=== PATIENT | female | born 1990 | race Caucasian/White ===

== ENCOUNTER 2018-03-18 18:54 | Emergency (ER) | payer OTHER ==
[2018-03-18 19:58] LABS: BILIRUBIN,URINE NEGATIVE (NEGATIVE); GLUCOSE, URINE (UA) NEGATIVE (NEGATIVE); KETONES,URINE (UA) NEGATIVE (NEGATIVE); LEUKOCYTE ESTERASE, URINE NEGATIVE (NEGATIVE); NITRITE,URINE NEGATIVE (NEGATIVE); OCCULT BLOOD,URINE NEGATIVE (NEGATIVE); PROTEIN,URINE NEGATIVE (NEGATIVE); UROBILINOGEN,URINE 0.2 (NORMAL) E.U./dL (NORMAL)
[2018-03-18 20:02] LABS: CLARITY,URINE CLEAR (CLEAR); HCG UR QUAL NEGATIVE
[2018-03-18] MEDS: SODIUM CHLORIDE 0.9% 1,000 ML IV ONE ×2 (20:09→20:37)
[2018-03-18 20:13] LABS: BASOPHILS # (AUTO) 0.1 10^3/uL (0.0-0.1); BASOPHILS % (AUTO) 0.8 %; EOSINOPHILS # (AUTO) 0.2 10^3/uL (0.0-0.7); HGB - HEMOGLOBIN 12.8 g/dL (12.0-16.0); LYMPHOCYTES # (AUTO) 2.5 10^3/uL (1.5-3.5); MEAN CORPUSCULAR HEMOGLOBIN 31.5 pg (27.0-31.0); MEAN CORPUSCULAR HGB CONC 33.6 g/dL (32.0-36.0); MEAN CORPUSCULAR VOLUME 93.7 fL (81.0-99.0); MONOCYTES # (AUTO) 0.6 10^3/uL (0.0-1.0); MONOCYTES % (AUTO) 7.1 %; NEUTROPHILS # (AUTO) 5.1 10^3/uL (1.5-6.6); NEUTROPHILS % (AUTO) 60.1 %; PLT - PLATELET COUNT 198 10^3/uL (130-450); RED BLOOD COUNT 4.08 10^6/uL (4.20-5.40); RED CELL DISTRIBUTION WIDTH 12.6 % (12.0-15.0); WHITE BLOOD COUNT 8.4 x10^3/uL (4.8-10.8)
[2018-03-18 20:26] LABS: ALBUMIN 4.1 g/dL (3.2-5.5); ALBUMIN/GLOBULIN RATIO 1.7 (1.0-2.2); BILIRUBIN,TOTAL 0.6 mg/dL (0.2-1.0); CREATININE 0.8 mg/dL (0.4-1.0); MAGNESIUM 2.1 mg/dL (1.7-2.8); TOTAL PROTEIN 6.5 g/dL (6.7-8.2)
--- NOTE | 2018-03-18 20:28 | ED Physician Documentation ---
History of Present Illness - Stated complaint Stated Complaint: RT SIDE LOWER ABD PX - Chief complaint Chief Complaint: Abd Pain - History obtained from History obtained from: Patient - Additonal information Additional information: 27-year-old female presents to the emergency department with increasing right lower quadrant pain which has progressively worsened. The patient has had numerous abdominal surgeries for ovarian cyst, the patient's also had her appendix removed. The patient reports having her uterus and fallopian tubes removed. The patient only has a small portion of her right ovary. The pain today is similar to other episodes of ruptured ovarian cyst but her pain is worse and lasting longer than normal. The patient's pain is constant, no nausea , vomiting, upper abdominal pain, diarrhea, dysuria or vaginal discharge. Symptoms are described as moderate. No other associated symptoms. No triggering factors. No attempts at symptom management Review of Systems Constitutional: denies: Fever, Chills, Fatigue Eyes: denies: Discharge Ears: denies: Ear pain Nose: denies: Congestion Throat: denies: Oral lesions / sores Cardiac: denies: Chest pain / pressure Respiratory: denies: Cough GI: reports: Abdominal Pain. denies: Vomiting, Constipation : denies: Dysuria, Hematuria, Vaginal bleeding Skin: denies: Rash, Lesions Musculoskeletal: denies: Neck pain Neurologic: denies: Generalized weakness Immunocompromised: denies: Chemotherapy PD PAST MEDICAL HISTORY - Past Medical History Past Medical History: Yes Respiratory: None Endocrine/Autoimmune: None PASTE MIXER: Ovarian cysts Musculoskeletal: Chronic back pain, Other - Past Surgical History Past Surgical History: Yes General: Appendectomy /PASTE MIXER: Hysterectomy, Oophrectomy, Other HEENT: Tonsil/Adenoidectomy - Present Medications Home Medications: Ambulatory Orders Medication Instructions Recorded Confirmed Naproxen [Naprosyn] 500 mg PO BID PRN 30 Days #30 03/18/18 tablet Ondansetron Odt [Zofran] 4 mg TL Q6H PRN #20 tablet 03/18/18 Oxycodone HCl/Acetaminophen 1 each PO Q6H PRN #14 tablet 03/18/18 [Percocet 5-325 mg Tablet] - Allergies Allergies/Adverse Reactions: Allergies Allergy/AdvReac Type Severity Reaction Status Date / Time hydromorphone Allergy Hives Verified 03/18/18 19:03 Iodinated Contrast- Oral and Allergy Hives Verified 03/18/18 19:03 IV Dye [Iodinated Contrast Media - IV Dye] Penicillins Allergy Hives Verified 03/18/18 19:03 - Social History Does the pt smoke?: Yes Smoking Status: Current every day smoker Does the pt drink ETOH?: No Does the pt have substance abuse?: No - Immunizations Immunizations are current?: Yes - POLST Patient has POLST: No PD ED PE NORMAL - General General: Alert and oriented X 3, No acute distress, Well developed/nourished - HEENT HEENT: Atraumatic, PERRL, EOMI, Ears normal, Moist mucous membranes - Neck Neck: Supple, no meningeal sign - Cardiac Cardiac: RRR, Strong equal pulses - Respiratory Respiratory: No respiratory distress - Abdomen Abdomen: Soft, Non distended. No: Non tender (The patient is tender in the right lower abdomen, no rebound or peritoneal signs) - Derm Derm: No: Normal color - Extremities Extremities: No deformity - Neuro Neuro: Alert and oriented X 3, Normal speech - Psych Psych: Normal mood Results - Vitals Vitals: Vital Signs - 24 hr 03/18/18 03/18/18 03/18/18 19:01 20:59 22:16 Temperature 36.8 C Heart Rate 105 H 79 71 Respiratory 16 18 16 Rate Blood Pressure 142/85 H 117/87 H 116/81 H O2 Saturation 98 99 99 03/18/18 23:58 Temperature 36.6 C Heart Rate 75 Respiratory 18 Rate Blood Pressure 118/69 O2 Saturation 98 Oxygen O2 Source Room air - Labs Labs: Laboratory Tests 03/18/18 03/18/18 03/18/18 19:47 20:08 20:08 WBC 8.4 RBC 4.08 L Hgb 12.8 Hct 38.2 MCV 93.7 MCH 31.5 H MCHC 33.6 RDW 12.6 Plt Count 198 MPV 9.0 Neut # (Auto) 5.1 Lymph # (Auto) 2.5 [place] # (Auto) 0.6 Eos # (Auto) 0.2 Baso # (Auto) 0.1 Absolute Nucleated RBC 0.00 Nucleated RBC % 0.0 Sodium 137 Potassium 3.8 Chloride 104 Carbon Dioxide 25 Anion Gap 8.0 BUN 17 Creatinine 0.8 Estimated GFR (MDRD) 85 L Glucose 96 Calcium 9.0 Magnesium 2.1 Total Bilirubin 0.6 AST 14 ALT 14 Alkaline Phosphatase 48 Total Protein 6.5 L Albumin 4.1 Globulin 2.4 Albumin/Globulin Ratio 1.7 Lipase 33 Urine Color YELLOW Urine Clarity CLEAR Urine pH 6.0 Ur Specific [place] 1.015 Urine Protein NEGATIVE Urine Glucose (UA) NEGATIVE Urine Ketones NEGATIVE Urine Occult Blood NEGATIVE Urine Nitrite NEGATIVE Urine Bilirubin NEGATIVE Urine Urobilinogen 0.2 (NORMAL) Ur Leukocyte Esterase NEGATIVE Ur Microscopic Review NOT INDICATED Urine Culture Comments NOT INDICATED Urine HCG, Qual NEGATIVE - Rads (name of study) CT abdomen pelvis Radiology: Final report received, See rad report PD MEDICAL DECISION MAKING - ED course ED course: On reevaluation the patient is resting comfortably, the patient's symptoms have resolved and she feels much improved. The findings on the patient's workup revealed a small kidney stone, there is currently no evidence of a coinciding urinary tract infection or sepsis. The patient's pain is under control and appears appropriate for discharge home. I discussed with the patient the findings and plan for outpatient management. Unfortunately, our [facility] does not have a urologist on staff. I gave the name of the closest urologist. I also advised talking with her primary care regarding a outpatient referral. The patient understands and agrees. I discussed worsening symptoms and advised returning to the emergency department immediately for any worsening or any concerns - Sepsis Event Vital Signs: Vital Signs - 24 hr 03/18/18 03/18/18 03/18/18 19:01 20:59 22:16 Temperature 36.8 C Heart Rate 105 H 79 71 Respiratory 16 18 16 Rate Blood Pressure 142/85 H 117/87 H 116/81 H O2 Saturation 98 99 99 03/18/18 23:58 Temperature 36.6 C Heart Rate 75 Respiratory 18 Rate Blood Pressure 118/69 O2 Saturation 98 Oxygen O2 Source Room air Departure - Departure Disposition: Home, Self Care Clinical Impression: Acute abdominal pain Urolithiasis Qualifiers: Urinary calculus location: ureter Qualified Code(s): N20.1 - Calculus of ureter Condition: Good Instructions: Abdominal Pain, Kidney Stones Identify Follow-Up: Randi Zimmerman PA [Primary Care Provider] - Anastacio Carson MD [Physician No Access] - (call to schedule an appointment ) Prescriptions: Naproxen [Naprosyn] 500 mg PO BID PRN 30 Days #30 tablet PRN Reason: Pain Ondansetron Odt [Zofran] 4 mg TL Q6H PRN #20 tablet PRN Reason: Nausea / Vomiting Oxycodone HCl/Acetaminophen [Percocet 5-325 mg Tablet] 1 each PO Q6H PRN #14 tablet PRN Reason: pain Comments: Please return to the ED for worsening symptoms or any concerns Discharge Date/Time: 03/18/18 23:59
[2018-03-18] MEDS: fentaNYL 100 MCG/2 ML VIAL IVP STA ×2 (20:37→22:19)
[2018-03-18] MEDS: KETOROLAC 60 MG/2 ML VIAL IVP STA (20:37)
[2018-03-18] MEDS: ACETAMINOPHEN 500 MG TABLET PO STA (20:37)
[2018-03-18] MEDS: diphenhydrAMINE INJ 50 MG/ML VIAL IVP STA (22:15)
[2018-03-18] MEDS: PROMETHAZINE INJ 25 MG in SODIUM CHLORIDE 0.9% 50 ML IV STA (22:20)
[2018-03-18] MEDS ORDERED: PROMETHAZINE 25 MG/1 ML VIAL ONE (22:21)
[2018-03-18] MEDS: BARIUM SULFATE 450 ML BOTTLE PO ONE (22:31)
--- NOTE | 2018-03-18 23:12 | CT Report ---
Procedure Date: 03/18/2018 Accession Number: [id number] / [id number] Procedure: CT - Abdomen/Pelvis W/O CPT Code: FULL RESULT: EXAM: CT ABDOMEN AND PELVIS EXAM DATE: 03/18/2018 10:50 PM. CLINICAL HISTORY: RLQ pain. COMPARISONS: None. TECHNIQUE: Routine helical CT imaging was performed through the abdomen and pelvis. IV contrast: No. Enteric contrast: No. Reconstructions: Coronal and sagittal. In accordance with CT protocol optimization, one or more of the following dose reduction techniques were utilized for this exam: automated exposure control, adjustment of mA and/or KV based on patient size, or use of iterative reconstructive technique. FINDINGS: Lung Bases: Unremarkable. Liver: The unenhanced liver is unremarkable. Gallbladder/Bile Ducts: The gallbladder has been removed. There is no bile duct dilatation. Spleen: Normal. Pancreas: Normal. Adrenal Glands: Normal. Kidneys: 2 mm calcification closely associated with the distal right ureter possibly representing a passing stone. Slight fullness of the renal collecting system present. The left kidney is normal. Peritoneal Cavity/Bowel: Normal. No free fluid, free air or adenopathy. No masses or acute inflammatory process. The appendix has been removed. Pelvic Organs: The uterus has been removed. The urinary bladder is unremarkable. Vasculature: No aneurysms or other significant abnormality. Bones: No significant abnormality. Other: None. IMPRESSION: 1. There is a 2 mm calcification closely associated with the distal right ureter suspicious for stone noting mild fullness of the right renal collecting system. 2. Otherwise unremarkable abdominal pelvic CT. RADIA
[2018-03-18] MEDS: HYDROcod/ACETAM 10 MG/325 MG TABLET PO STA (23:56)
[2018-03-18 23:59] VITALS: BP 118/69
== END 2018-03-18 23:59 | disposition home or self-care (01) ==
LOC: ED 18:54
DX: N20.1 Calculus of ureter (principal); F17.200 Nicotine dependence, unspecified, uncomplicated; Z90.710 Acquired absence of both cervix and uterus; Z90.79 Acquired absence of other genital organ(s); Z90.49 Acquired absence of other specified parts of digestive tract
CPT/HCPCS: 36415; 74176; 80053; 81003; 81025; 83690; 83735; 85025; 96361; 96365; 96375; 96376; 99284; A9270; J1200; 81001; 87086

== ENCOUNTER 2018-04-05 19:01 | Outpatient (CLI) | payer OTHER ==
--- NOTE | 2018-04-06 09:08 | Ultrasound Report ---
Procedure Date: 04/05/2018 Accession Number: [id number] / [id number] Procedure: US - Pelvic w/Transvaginal CPT Code: FULL RESULT: EXAM: Pelvic w/Transvaginal DATE: 04/05/2018 8:00 PM CLINICAL HISTORY: HISTORY OF BENIGN NEOPLASM OF RT OVARY COMPARISON: CT abdomen pelvis 03/18/2018. TECHNIQUE: Realtime transabdominal imaging performed to identify the uterus and adnexa and as an overview of other pelvic structures, followed by transvaginal imaging for better assessment of the endometrium and/or adnexa, with static image documentation. FINDINGS: The uterus and left ovary are surgically absent. Right Ovary/Adnexa: 2.7 x 1.7 x 1.8 cm, volume 4.4 cc. Normal echotexture. Blood flow is present. No suspicious adnexal mass is seen. A 1.1 x 0.6 x 1.0 cm simple appearing ovarian cyst qualifies as a dominant follicle by definition in a premenopausal patient. Free Fluid: None. Other: None. IMPRESSION: Normal appearance of the right ovary as described. RADIA
== END 2018-04-05 19:02 | disposition home or self-care (01) ==
LOC: DI 19:01
PROVIDERS: ATTEND Physician Assistant
DX: N83.291 Other ovarian cyst, right side (principal)
CPT/HCPCS: 76830; 76856

== ENCOUNTER 2018-04-20 11:48 | Outpatient (CLI) | payer OTHER ==
--- NOTE | 2018-04-20 12:30 | CT Report ---
Reason: FLANK PAIN. RIGHT Procedure Date: 04/20/2018 Accession Number: [id number] / [id number] Procedure: CT - Abdomen/Pelvis W/O CPT Code: FULL RESULT: EXAM: CT ABDOMEN AND PELVIS (CT KUB) EXAM DATE: 04/20/2018 12:11 PM. CLINICAL HISTORY: Right flank pain. COMPARISONS: Ultrasound pelvis 04/05/2018, CT abdomen pelvis 03/18/2018. TECHNIQUE: Routine axial helical CT imaging was performed through the abdomen and pelvis without IV contrast. Reconstructions: Coronal and sagittal. In accordance with CT protocol optimization, one or more of the following dose reduction techniques were utilized for this exam: automated exposure control, adjustment of mA and/or KV based on patient size, or use of iterative reconstructive technique. FINDINGS: Lung Bases: Unremarkable. Right Kidney/Ureter: No stones, hydronephrosis, or hydroureter. No perinephric fat stranding. Left Kidney/Ureter: No stones, hydronephrosis, or hydroureter. No perinephric fat stranding. Other Solid Organs: Noncontrast images of the solid organs are grossly unremarkable. Gallbladder/Bile Ducts: Unremarkable. Peritoneal Cavity: Unopacified stomach and small bowel are nondistended. Surgical clips near the pendulous cecum consistent with prior appendectomy. Minimal formed stool scattered in the colon. Minimal scattered colon diverticulosis. No pericolonic fat stranding. No lymphadenopathy, ascites, or pneumoperitoneum. Pelvic Organs: Small volume bladder without stones. Uterus appears to be surgically absent. No adnexal mass is identified. Vasculature: 2 mm phlebolith in the right pelvis there are the posterior superior margin of the bladder, unchanged. Abdominal aorta normal in size. Other: Abdominal wall unremarkable. IMPRESSION: 1. No hydronephrosis or urolithiasis. 2. No findings are identified to explain right flank pain. RADIA
== END 2018-04-20 11:49 | disposition home or self-care (01) ==
LOC: DI 11:48
PROVIDERS: ATTEND Physician Assistant
DX: R10.9 Unspecified abdominal pain (principal); N20.0 Calculus of kidney
CPT/HCPCS: 74176

== ENCOUNTER 2018-05-06 17:53 | Emergency (ER) | payer OTHER ==
--- NOTE | 2018-05-06 19:08 | ED Physician Documentation ---
PD HPI BACK PAIN - Stated complaint Stated Complaint: LOWER RT SIDE PX - Chief complaint Chief Complaint: Back Pain - History obtained from History obtained from: Patient - History of Present Illness Timing - onset: How many days ago (1-2) Timing - duration: Days (1-2) Timing - details: Gradual onset, Still present Location: Lower, Right (radiating around to right inguinal and upper thigh area) Quality: Pain, Aching. No: Spasm Associated symptoms: No: Fever, Weakness, Numbness, Hematuria Worsened by: Movement, Palpation Contributing factors: No: Lifting, Twisting, Trauma Similar symptoms before: Has not had sx before (has had bursitits right hip but is different. No prior kidney stones.) Review of Systems Constitutional: denies: Fever, Chills GI: reports: Abdominal Pain : denies: Dysuria, Frequency, Discharge Skin: denies: Rash, Lesions Musculoskeletal: reports: Back pain PD PAST MEDICAL HISTORY - Past Medical History Respiratory: None Endocrine/Autoimmune: None CERAMICS INSTRUCTOR: Ovarian cysts Musculoskeletal: Chronic back pain, Other - Past Surgical History Past Surgical History: Yes General: Appendectomy /CERAMICS INSTRUCTOR: Hysterectomy, Oophrectomy (left ovary; still has right), Other HEENT: Tonsil/Adenoidectomy - Present Medications Home Medications: Ambulatory Orders Medication Instructions Recorded Confirmed Gabapentin [Neurontin] 05/06/18 Naproxen [Naprosyn] 500 mg PO BID 20 Days #20 tablet 05/06/18 Oxycodone HCl/Acetaminophen 1 each PO Q6H PRN #15 tablet 05/06/18 [Percocet 5-325 mg Tablet] - Allergies Allergies/Adverse Reactions: Allergies Allergy/AdvReac Type Severity Reaction Status Date / Time hydromorphone Allergy Hives Verified 03/18/18 19:03 Iodinated Contrast- Oral and Allergy Hives Verified 03/18/18 19:03 IV Dye [Iodinated Contrast Media - IV Dye] Penicillins Allergy Hives Verified 05/06/18 18:05 - Social History Does the pt smoke?: Yes Smoking Status: Current every day smoker Does the pt drink ETOH?: No Does the pt have substance abuse?: No - Immunizations Immunizations are current?: Yes - POLST Patient has POLST: No PD ED PE NORMAL - Vitals Vital signs reviewed: Yes - General General: Alert and oriented X 3, No acute distress, Well developed/nourished - Neck Neck: Supple, no meningeal sign, No adenopathy - Cardiac Cardiac: RRR, No murmur - Respiratory Respiratory: Clear bilaterally - Abdomen Abdomen: Normal bowel sounds, Soft, Non tender, Non distended, No organomegaly - Female Female : Deferred - Rectal Rectal: Deferred - Back Back: No spinal TTP, Other (soem tenderness right lower back (not exactly in CVA area). No rash nor sores. Tender laterally lower right side abd. Some tender at trochanter of the hip, but she says it is at baseline and not the same area of current new pain. ) Results - Vitals Vitals: Vital Signs - 24 hr 05/06/18 05/06/18 05/06/18 18:02 20:33 21:24 Temperature 36.8 C Heart Rate 116 H 91 91 Respiratory 20 17 16 Rate Blood Pressure 146/92 H 119/88 H 121/85 H O2 Saturation 99 97 98 Oxygen O2 Source Room air - Labs Labs: Laboratory Tests 05/06/18 19:55 Urine Color YELLOW Urine Clarity CLEAR Urine pH 6.0 Ur Specific [place] 1.015 Urine Protein NEGATIVE Urine Glucose (UA) NEGATIVE Urine Ketones NEGATIVE Urine Occult Blood NEGATIVE Urine Nitrite NEGATIVE Urine Bilirubin NEGATIVE Urine Urobilinogen 0.2 (NORMAL) Ur Leukocyte Esterase NEGATIVE Ur Microscopic Review NOT INDICATED Urine Culture Comments NOT INDICATED - Rads (name of study) abd KUB CT Radiology: Prelim report reviewed (no acute findings to account for the pain. No stones nor kidney changes. ) PD MEDICAL DECISION MAKING - ED course Complexity details: considered differential (pain distribution could be consistent with nerve root or myofascial band as well. No rash nor skin tenderness. CT scan did not show any stones nor other acute process. Has had hyst. ), d/w patient - Sepsis Event Vital Signs: Vital Signs - 24 hr 05/06/18 05/06/18 05/06/18 18:02 20:33 21:24 Temperature 36.8 C Heart Rate 116 H 91 91 Respiratory 20 17 16 Rate Blood Pressure 146/92 H 119/88 H 121/85 H O2 Saturation 99 97 98 Oxygen O2 Source Room air Departure - Departure Disposition: 01 Home, Self Care Clinical Impression: Right hip pain Condition: Stable Record reviewed to determine appropriate education?: Yes Instructions: ED Low Back Pain Injury Follow-Up: Randi Zimmerman PA [Primary Care Provider] - Prescriptions: Naproxen [Naprosyn] 500 mg PO BID 20 Days #20 tablet Oxycodone HCl/Acetaminophen [Percocet 5-325 mg Tablet] 1 each PO Q6H PRN #15 tablet PRN Reason: Pain Comments: No signs of kidney stones or kidney infection. Your CT scan appeared normal without obvious cause of the pain. We will presume it to be nerve pain coming around from the back to the front or possibly a muscular pain which should have a similar distribution. There was some naproxen and Percocet if needed for pains. Follow-up with your primary care in the next 2-3 days. Return to recheck if other symptoms develop such as rash fever or other problems. Discharge Date/Time: 05/06/18 21:24
[2018-05-06] MEDS ORDERED: oxyCODONE 5 MG TABLET PO STA ×2 (19:23→20:51)
--- NOTE | 2018-05-06 20:05 | CT Report ---
Reason: right back into RLQ abd pain Procedure Date: 05/06/2018 Accession Number: [id number] / [id number] Procedure: CT - KUB CPT Code: FULL RESULT: EXAM: CT ABDOMEN AND PELVIS (CT KUB) EXAM DATE: 05/06/2018 07:39 PM. CLINICAL HISTORY: Right back into RLQ abd pain. COMPARISONS: ABDOMEN/PELVIS W/O 04/20/2018 12:10 AM. TECHNIQUE: Routine axial helical CT imaging was performed through the abdomen and pelvis without IV contrast. Reconstructions: Coronal and sagittal. In accordance with CT protocol optimization, one or more of the following dose reduction techniques were utilized for this exam: automated exposure control, adjustment of mA and/or KV based on patient size, or use of iterative reconstructive technique. FINDINGS: Lung Bases: Unremarkable. Right Kidney/Ureter: No stones, hydronephrosis, or hydroureter. No perinephric fat stranding. Left Kidney/Ureter: No stones, hydronephrosis, or hydroureter. No perinephric fat stranding. Other Solid Organs: Noncontrast images of the solid organs are grossly unremarkable. Gallbladder/Bile Ducts: Unremarkable. Peritoneal Cavity: No dilated or thick-walled bowel is seen. No intraperitoneal free air. No enlarged mesenteric or retroperitoneal lymph nodes. No evidence of appendicitis. Pelvic Organs: No bladder stones or wall thickening. Noncontrast images of the visualized pelvic organs are unremarkable. There is a small amount of free fluid within the pelvis. There is a small phlebolith at the right base of the urinary bladder. Vasculature: Unremarkable. Other: None. IMPRESSION: Negative noncontrast CT of the abdomen and pelvis. No acute findings to account for the patient's presentation. RADIA
[2018-05-06 20:13] LABS: BILIRUBIN,URINE NEGATIVE (NEGATIVE); GLUCOSE, URINE (UA) NEGATIVE (NEGATIVE); KETONES,URINE (UA) NEGATIVE (NEGATIVE); LEUKOCYTE ESTERASE, URINE NEGATIVE (NEGATIVE); NITRITE,URINE NEGATIVE (NEGATIVE); OCCULT BLOOD,URINE NEGATIVE (NEGATIVE); PROTEIN,URINE NEGATIVE (NEGATIVE); UROBILINOGEN,URINE 0.2 (NORMAL) E.U./dL (NORMAL)
[2018-05-06 20:18] LABS: CLARITY,URINE CLEAR (CLEAR)
[2018-05-06] MEDS ORDERED: IBUPROFEN 600 MG TABLET PO STA (20:50)
[2018-05-06 21:26] VITALS: BP 121/85
== END 2018-05-06 21:24 | disposition home or self-care (01) ==
LOC: ED 17:53
DX: M25.551 Pain in right hip (principal); F17.200 Nicotine dependence, unspecified, uncomplicated
CPT/HCPCS: 74176; 81003; 99283; A9270; 81001; 87086

== ENCOUNTER 2018-05-20 17:09 | Emergency (ER) | payer OTHER ==
--- NOTE | 2018-05-20 17:21 | ED Physician Documentation ---
PD HPI ABD PAIN - Stated complaint Stated Complaint: BACK/ABD PX - Chief complaint Chief Complaint: Abd Pain - History obtained from History obtained from: Patient - History of Present Illness Timing - onset: Today (onset soon after eating of upper abd pain and vomiting multiple times. Has persistent pain right low back that increased worse with the vomiting. Has been taking NSAIDs regularly for the back pain, as directed by her PCP. Has had imaging for low back and is referred to pain clinic for it, with appt coming in 2 days.) Timing - details: Abrupt onset Quality: Aching, Pain Location: RUQ, Epigastric Radiation: No: Lower back (has lower right back pain prior to onset of this), Upper back Improved by: No: Vomiting Worsened by: Eating Associated symptoms: Nausea, Vomiting. No: Fever, Hematemesis, Diarrhea, Dysuri a Similar symptoms before: Has not had sx before Recently seen: Clinic (for her right flank and low back pain.), Emergency Dept Review of Systems Constitutional: denies: Fever, Chills, Myalgias Nose: denies: Rhinorrhea / runny nose, Congestion Throat: denies: Sore throat Respiratory: denies: Cough GI: reports: Abdominal Pain, Nausea, Vomiting. denies: Constipation, Diarrhea, Hematemesis, Bloody / black stool : denies: Dysuria, Frequency Skin: denies: Rash, Lesions Musculoskeletal: reports: Back pain. denies: Neck pain PD PAST MEDICAL HISTORY - Past Medical History Respiratory: None Endocrine/Autoimmune: None ROAD CONSULTANT: Ovarian cysts Musculoskeletal: Chronic back pain, Other - Past Surgical History Past Surgical History: Yes General: Appendectomy /ROAD CONSULTANT: Hysterectomy, Oophrectomy (left ovary; still has right), Other HEENT: Tonsil/Adenoidectomy - Present Medications Home Medications: Ambulatory Orders Medication Instructions Recorded Confirmed Gabapentin [Neurontin] 05/06/18 Naproxen [Naprosyn] 500 mg PO BID 20 Days #20 tablet 05/06/18 Oxycodone HCl/Acetaminophen 1 each PO Q6H PRN #15 tablet 05/06/18 [Percocet 5-325 mg Tablet] Famotidine [Pepcid] 20 mg PO ONCE #30 tablet 05/20/18 HYDROcod/ACETAM 5/325 [[place] 5/325] 1 tab PO Q6H PRN #15 tablet 05/20/18 Ondansetron Odt [Zofran] 4 mg TL Q6H PRN #15 tablet 05/20/18 - Allergies Allergies/Adverse Reactions: Allergies Allergy/AdvReac Type Severity Reaction Status Date / Time hydromorphone Allergy Hives Verified 03/18/18 19:03 Iodinated Contrast- Oral and Allergy Hives Verified 03/18/18 19:03 IV Dye [Iodinated Contrast Media - IV Dye] Penicillins Allergy Hives Verified 05/06/18 18:05 - Social History Does the pt smoke?: Yes Smoking Status: Current every day smoker Does the pt drink ETOH?: No Does the pt have substance abuse?: No - Immunizations Immunizations are current?: Yes - POLST Patient has POLST: No PD ED PE NORMAL - Vitals Vital signs reviewed: Yes - General General: Alert and oriented X 3, Well developed/nourished, Other (appears uncomfortable) - HEENT HEENT: Pharynx benign - Neck Neck: Supple, no meningeal sign, No adenopathy - Cardiac Cardiac: RRR, No murmur - Respiratory Respiratory: Clear bilaterally - Abdomen Abdomen: Soft, Non distended, No organomegaly, Other (tender epigastric and RUQ area with local guarding, but no percussion nor rebound tenderness. ) - Female Female : Deferred - Rectal Rectal: Deferred - Back Back: No CVA TTP, No spinal TTP, Other (tender at right upper SI area and low lumbar muscles. No rash nor sores. Most tender today at upper SI with focal tenderness there. ) - Derm Derm: Normal color, Warm and dry, No rash - Neuro Neuro: Alert and oriented X 3, No motor deficit, No sensory deficit, Normal speech Results - Vitals Vitals: Vital Signs - 24 hr 05/20/18 05/20/18 05/20/18 17:12 19:12 20:41 Temperature 37.1 C 36.4 C L Heart Rate 105 H 94 95 Respiratory 18 16 18 Rate Blood Pressure 144/92 H 111/72 119/82 H O2 Saturation 97 100 96 Oxygen O2 Source Room air - Labs Labs: Laboratory Tests 05/20/18 05/20/18 05/20/18 17:19 17:19 18:05 WBC 7.5 RBC 3.99 L Hgb 13.1 Hct 36.8 L MCV 92.1 MCH 32.8 H MCHC 35.6 RDW 13.0 Plt Count 262 MPV 9.0 Neut # (Auto) 4.8 Lymph # (Auto) 2.1 [place] # (Auto) 0.5 Eos # (Auto) 0.1 Baso # (Auto) 0.0 Absolute Nucleated RBC 0.00 Nucleated RBC % 0.0 Sodium Potassium Chloride Carbon Dioxide Anion Gap BUN Creatinine Estimated GFR (MDRD) Glucose Calcium Total Bilirubin AST ALT Alkaline Phosphatase Total Protein Albumin Globulin Albumin/Globulin Ratio Lipase Urine Color YELLOW Urine Clarity CLEAR Urine pH 7.5 Ur Specific [place] 1.015 1.015 Urine Protein NEGATIVE Urine Glucose (UA) NEGATIVE Urine Ketones NEGATIVE Urine Occult Blood NEGATIVE Urine Nitrite NEGATIVE Urine Bilirubin NEGATIVE Urine Urobilinogen 0.2 (NORMAL) Ur Leukocyte Esterase NEGATIVE Ur Microscopic Review NOT INDICATED Urine Culture Comments NOT INDICATED Urine HCG, Qual NEGATIVE 05/20/18 18:05 WBC RBC Hgb Hct MCV MCH MCHC RDW Plt Count MPV Neut # (Auto) Lymph # (Auto) [place] # (Auto) Eos # (Auto) Baso # (Auto) Absolute Nucleated RBC Nucleated RBC % Sodium 139 Potassium 3.7 Chloride 103 Carbon Dioxide 27 Anion Gap 9.0 BUN 14 Creatinine 0.9 Estimated GFR (MDRD) 74 L Glucose 94 Calcium 9.5 Total Bilirubin 0.5 AST 16 ALT 14 Alkaline Phosphatase 56 Total Protein 7.1 Albumin 4.3 Globulin 2.8 Albumin/Globulin Ratio 1.5 Lipase 27 Urine Color Urine Clarity Urine pH Ur Specific [place] Urine Protein Urine Glucose (UA) Urine Ketones Urine Occult Blood Urine Nitrite Urine Bilirubin Urine Urobilinogen Ur Leukocyte Esterase Ur Microscopic Review Urine Culture Comments Urine HCG, Qual PD MEDICAL DECISION MAKING - ED course Complexity details: considered differential (seems gastric pain with normal lipase and GB U/S. Has been taking Ibuprofen QID regularly for her low back pain. Sees Pain Clinic in couple days. Will change from NSAIDs to other pain meds. Gave local injection with Marcaine/Kenalog at upper SI area, which is her point of most tenderness. No rash nor sores in the area. ), d/w patient - Sepsis Event Vital Signs: Vital Signs - 24 hr 05/20/18 05/20/18 05/20/18 17:12 19:12 20:41 Temperature 37.1 C 36.4 C L Heart Rate 105 H 94 95 Respiratory 18 16 18 Rate Blood Pressure 144/92 H 111/72 119/82 H O2 Saturation 97 100 96 Oxygen O2 Source Room air Departure - Departure Disposition: Home, Self Care Clinical Impression: Sacroiliac joint pain, Acute epigastric pain, Gastritis due to nonsteroidal anti-inflammatory drug (NSAID) Condition: Stable Record reviewed to determine appropriate education?: Yes Instructions: ED Gastritis Follow-Up: Randi Zimmerman PA [Primary Care Provider] - Prescriptions: Famotidine [Pepcid] 20 mg PO ONCE #30 tablet HYDROcod/ACETAM 5/325 [[place] 5/325] 1 tab PO Q6H PRN #15 tablet PRN Reason: Pain Ondansetron Odt [Zofran] 4 mg TL Q6H PRN #15 tablet PRN Reason: Nausea / Vomiting Comments: Discontinue any NSAID use such as the ibuprofen you have been taking. This likely caused irritation of your stomach and is now the upper belly pain and vomiting. Instead use Tylenol or hydrocodone if needed for your low back pain. He can continue the gabapentin. Use ondansetron if needed for nausea. Famotidine daily to reduce stomach acids. At some antacid such as Maalox or Mylanta a few times a day. Follow-up with the pain clinic Monday as planned. Follow-up with her primary care as well. Discharge Date/Time: 05/20/18 20:48
[2018-05-20 17:25] LABS: BILIRUBIN,URINE NEGATIVE (NEGATIVE); GLUCOSE, URINE (UA) NEGATIVE (NEGATIVE); KETONES,URINE (UA) NEGATIVE (NEGATIVE); LEUKOCYTE ESTERASE, URINE NEGATIVE (NEGATIVE); NITRITE,URINE NEGATIVE (NEGATIVE); OCCULT BLOOD,URINE NEGATIVE (NEGATIVE); PH,URINE 7.5 PH (5.0-7.5); PROTEIN,URINE NEGATIVE (NEGATIVE); UROBILINOGEN,URINE 0.2 (NORMAL) E.U./dL (NORMAL)
[2018-05-20 17:26] LABS: CLARITY,URINE CLEAR (CLEAR)
[2018-05-20 17:28] LABS: HCG UR QUAL NEGATIVE
[2018-05-20] MEDS ORDERED: MORPHINE 2 MG/ML CARPUJECT IVP STA (17:57)
[2018-05-20] MEDS ORDERED: SODIUM CHLORIDE 0.9% 1,000 ML IV ONE (17:57)
[2018-05-20] MEDS ORDERED: KETOROLAC 60 MG/2 ML VIAL IVP STA (17:57)
[2018-05-20] MEDS ORDERED: ONDANSETRON 4 MG/2 ML VIAL IVP STA (17:57)
[2018-05-20] MEDS ORDERED: TRIAMCINOLONE 40 MG/ML VIAL IM STA (17:59)
[2018-05-20] MEDS ORDERED: FAMOTIDINE 20 MG/50 ML 50 ML IV ONE (17:59)
[2018-05-20 18:14] LABS: BASOPHILS % (AUTO) 0.6 %; EOSINOPHILS # (AUTO) 0.1 10^3/uL (0.0-0.7); EOSINOPHILS % (AUTO) 1.3 %; HGB - HEMOGLOBIN 13.1 g/dL (12.0-16.0); LYMPHOCYTES # (AUTO) 2.1 10^3/uL (1.5-3.5); LYMPHOCYTES % (AUTO) 27.9 %; MEAN CORPUSCULAR HEMOGLOBIN 32.8 pg (27.0-31.0); MEAN CORPUSCULAR HGB CONC 35.6 g/dL (32.0-36.0); MEAN CORPUSCULAR VOLUME 92.1 fL (81.0-99.0); MONOCYTES # (AUTO) 0.5 10^3/uL (0.0-1.0); MONOCYTES % (AUTO) 6.1 %; NEUTROPHILS # (AUTO) 4.8 10^3/uL (1.5-6.6); NEUTROPHILS % (AUTO) 64.1 %; PLT - PLATELET COUNT 262 10^3/uL (130-450); RED BLOOD COUNT 3.99 10^6/uL (4.20-5.40); WHITE BLOOD COUNT 7.5 x10^3/uL (4.8-10.8)
[2018-05-20 18:23] LABS: ALBUMIN 4.3 g/dL (3.2-5.5); ALBUMIN/GLOBULIN RATIO 1.5 (1.0-2.2); BILIRUBIN,TOTAL 0.5 mg/dL (0.2-1.0); CALCIUM 9.5 mg/dL (8.5-10.3); CREATININE 0.9 mg/dL (0.4-1.0); TOTAL PROTEIN 7.1 g/dL (6.7-8.2)
--- NOTE | 2018-05-20 19:55 | Ultrasound Report ---
Reason: RUQ abd pain and vomiting since AM Procedure Date: 05/20/2018 Accession Number: [id number] / [id number] Procedure: US - Abdomen Limited CPT Code: FULL RESULT: EXAM: ABDOMEN ULTRASOUND LIMITED, RUQ EXAM DATE: 05/20/2018 07:00 PM. CLINICAL HISTORY: Right upper quadrant abdominal pain and vomiting since AM. COMPARISON: KUB 05/06/2018 7:38 PM. TECHNIQUE: Real-time scanning was performed with static images obtained. FINDINGS: Liver: Normal in size and echotexture. 15.2 cm. Main portal vein flow: Hepatopetal. Gallbladder: Normal. No stones, wall thickening, or sonographic Gonzáles's sign. Wall thickness measures 2 mm. Biliary System: Common duct measures 4 mm. No intrahepatic or extrahepatic ductal dilatation. Other: The right kidney measures 10.5 cm in length and there is no hydronephrosis. Visualized portions of the pancreas appear unremarkable. IMPRESSION: Within normal limits. RADIA
[2018-05-20] MEDS ORDERED: oxyCODONE/ACET 5/325 Prepack 4 PO STA (20:23)
[2018-05-20] MEDS ORDERED: ONDANSETRON ODT 4 MG Prepack 2 TL PRN (20:23)
[2018-05-20] MEDS ORDERED: MORPHINE 10 MG/ML VIAL IVP STA (20:23)
[2018-05-20 20:43] VITALS: BP 119/82
== END 2018-05-20 20:48 | disposition home or self-care (01) ==
LOC: ED 17:09
DX: M53.3 Sacrococcygeal disorders, not elsewhere classified (principal); R10.13 Epigastric pain; K29.70 Gastritis, unspecified, without bleeding; T39.395A Adverse effect of other nonsteroidal anti-inflammatory drugs [NSAID], initial encounter; G89.29 Other chronic pain; F17.200 Nicotine dependence, unspecified, uncomplicated
CPT/HCPCS: 20552; 36415; 76705; 80053; 81001; 81003; 81025; 83690; 85025; 87086; 96365; 96375; 96376; 99283; 99284

== ENCOUNTER 2019-07-22 07:00 | Outpatient (CLI) | payer OTHER ==
[2019-07-22 15:22] LABS: BASOPHILS % (AUTO) 0.7 %; EOSINOPHILS # (AUTO) 0.1 10^3/uL (0.0-0.7); EOSINOPHILS % (AUTO) 1.3 %; HGB - HEMOGLOBIN 12.1 g/dL (12.0-16.0); LYMPHOCYTES # (AUTO) 1.9 10^3/uL (1.5-3.5); LYMPHOCYTES % (AUTO) 31.5 %; MEAN CORPUSCULAR HEMOGLOBIN 29.7 pg (27.0-31.0); MEAN CORPUSCULAR HGB CONC 31.1 g/dL (32.0-36.0); MEAN CORPUSCULAR VOLUME 95.6 fL (81.0-99.0); MEAN PLATELET VOLUME 10.9 fL (7.9-10.8); MONOCYTES # (AUTO) 0.5 10^3/uL (0.0-1.0); MONOCYTES % (AUTO) 8.4 %; NEUTROPHILS # (AUTO) 3.5 10^3/uL (1.5-6.6); NEUTROPHILS % (AUTO) 57.8 %; PLT - PLATELET COUNT 265 10^3/uL (130-450); RED BLOOD COUNT 4.07 10^6/uL (4.20-5.40); RED CELL DISTRIBUTION WIDTH 12.3 % (12.0-15.0); WHITE BLOOD COUNT 6.1 x10^3/uL (4.8-10.8)
[2019-07-22 15:43] LABS: ALBUMIN 4.4 g/dL (3.2-5.5); ALBUMIN/GLOBULIN RATIO 1.7 (1.0-2.2); BILIRUBIN,TOTAL 0.6 mg/dL (0.2-1.0); CREATININE 0.8 mg/dL (0.4-1.0)
[2019-07-22 16:24] LABS: FOLLICLE STIMULATING HORMONE 119.01 mIU/mL
== END 2019-07-22 23:59 | disposition home or self-care (01) ==
LOC: LAB.WCP 07:00
PROVIDERS: ATTEND Physician Assistant
DX: N95.1 Menopausal and female climacteric states (principal); R53.83 Other fatigue
CPT/HCPCS: 36415; 80053; 83001; 84443; 85025

== ENCOUNTER 2020-02-04 12:53 | Outpatient (CLI) | payer OTHER ==
--- NOTE | 2020-02-04 16:22 | XRAY Report ---
Reason: CERVICALGIA Procedure Date: 02/04/2020 Accession Number: [id number] / [id number] Procedure: XR - Cervical Spine 2 View CPT Code: Final Report FULL RESULT: PROCEDURE: Cervical Spine 2 View INDICATIONS: CERVICALGIA TECHNIQUE: 3 views of the cervical spine were acquired. COMPARISON: CT neck 03/09/2016. FINDINGS: Bones: No fractures or dislocations to the C6-C7 level. There is straightening of the cervical lordosis redemonstrated. The lateral masses of C1 appear intact on the odontoid view. Disc spaces appear grossly preserved. No suspicious bony lesions. Soft tissues: No prevertebral soft tissue swelling. IMPRESSION: 1. No acute bony abnormality to the C6-C7 level. Reviewed by: Tim German MD on 02/04/2020 4:21 PM PDT Approved by: Tim German MD on 02/04/2020 4:21 PM PDT Station ID: [id number]
== END 2020-02-04 12:54 | disposition home or self-care (01) ==
LOC: DI 12:53
PROVIDERS: ATTEND Nurse Practitioner Family
DX: M54.2 Cervicalgia (principal)
CPT/HCPCS: 72040

== ENCOUNTER 2020-02-10 07:53 | Outpatient (CLI) | payer OTHER ==
[2020-02-17 09:24] LABS: CREATININE, URINE 1.07 g/24 h (0.50-2.15)
== END 2020-02-10 23:59 | disposition home or self-care (01) ==
LOC: LAB.R 07:53
PROVIDERS: ATTEND Physician Assistant
DX: R63.5 Abnormal weight gain (principal)
CPT/HCPCS: 82530; 82570

== ENCOUNTER 2020-03-11 08:21 | Outpatient (CLI) | payer OTHER | END 2020-03-11 23:59 | disposition home or self-care (01) | LOC: LAB.WCP 08:21 | PROVIDERS: ATTEND Physician Assistant | DX: R63.5 Abnormal weight gain (principal) | CPT/HCPCS: 36415; 82533 ==

== ENCOUNTER 2020-05-29 18:45 | Outpatient (CLI) | payer OTHER ==
--- NOTE | 2020-05-30 18:13 | Ultrasound Report ---
PROCEDURE: Head or Neck Soft Tissue INDICATIONS: THYROID NODULE TECHNIQUE: Real time scanning was performed of the neck region of interest, with image documentation . COMPARISON: None. FINDINGS: No soft tissue neck abnormality seen bilaterally . Right thyroid gland measures 4.6 x 1.4 x 1.2 cm. Left thyroid gland measures 4.6 x 1.5 x 1.0 cm. Thyroid isthmus measures 0.4 cm in thickne ss. IMPRESSION: Unremarkable sonographic appearance of the thyroid without thyroid nodule. Reviewed by: Fidel Aguila on 05/30/2020 5:11 PM ANDREA Approved by: Fidel Aguila on 05/30/2020 5:11 PM ANDREA Station ID: [id number]
== END 2020-05-29 18:46 | disposition home or self-care (01) ==
LOC: DI 18:45
PROVIDERS: ATTEND Family Medicine
DX: E04.1 Nontoxic single thyroid nodule (principal); E24.8 Other Cushing's syndrome
CPT/HCPCS: 76536

== ENCOUNTER 2020-06-02 17:54 | Outpatient (CLI) | payer OTHER ==
[2020-06-02] MEDS ORDERED: IOVERSOL 320 100 ML VIAL IVP ONE ×2 (18:08→19:22)
--- NOTE | 2020-06-03 09:11 | CT Report ---
PROCEDURE: ABDOMEN W/WO INDICATIONS: CUSHINGS SYNDROME CONTRAST: IV CONTRAST: Optiray 320 ml: 100 PO CONTRAST: *NO PO CONTRAST TECHNIQUE: 3 mm thick sections acquired from the diaphragms through the aortic bifurcation before and after the administration of intravenous contrast. 5 mm coronal and sagittal reformats were then performed. Fo r radiation dose reduction, the following was used: automated exposure control, adjustment of mA and /or kV according to patient size. COMPARISON: CT abdomen pelvis 04/20/2018, 03/18/2018. FINDINGS: Image quality: Excellent. Lung bases: There is mild dependent atelectasis. Heart size is normal. There is a minimal amount of p ericardial fluid noted. Adrenal glands: No discrete adrenal nodule or mass identified. The adrenal glands are normal in size bilaterally. Solid organs: There is a small nonspecific hypoattenuating oval lesion measuring up to 0.9 cm within the posterior right hepatic lobe in segment 7. This appears unchanged compared to the prior study. B iliary system is non dilated. Pancreas enhances normally. Kidneys are normal in size and enhancemen t. There is mild dilatation of the right renal collecting system and ureter. No perinephric stranding . Left kidney demonstrates no hydronephrosis or perinephric stranding. A punctate dependent stone is demonstrated within the bladder adjacent to the ureterovesicular junction. Peritoneum and bowel: Visualized bowel loops are normal in caliber and wall thickness. There are post surgical changes along the cecum likely related to prior appendectomy. Colonic diverticulosis is note d without acute diverticulitis identified. No free fluid or air. Nodes and vessels: No retroperitoneal or mesenteric adenopathy by size criteria. Aorta and inferior vena cava are normal in size. Miscellaneous: No discrete mass demonstrated at the aortic bifurcation. No ventral hernias. Bones: No suspicious bony lesions. No vertebral body compression fractures. IMPRESSION: 1. No adrenal enlargement or discrete renal nodule identified. No mass lesion demonstrated at the aor tic bifurcation. 2. Small lesion in the posterior right hepatic lobe is nonspecific but appears unchanged compared to the prior studies. 3. Mild right hydroureteronephrosis with a punctate stone demonstrated in the bladder adjacent to the right UVJ. Findings are suggestive of a recently passed stone. Reviewed by: Tim German MD on 06/03/2020 8:10 AM ANDREA Approved by: Tim German MD on 06/03/2020 8:10 AM [facility] Station ID: [id number]
== END 2020-06-02 17:55 | disposition home or self-care (01) ==
LOC: DI 17:54
PROVIDERS: ATTEND Family Medicine
DX: E24.8 Other Cushing's syndrome (principal); N21.0 Calculus in bladder; N13.30 Unspecified hydronephrosis; K76.9 Liver disease, unspecified
CPT/HCPCS: 74170; Q9967

== ENCOUNTER 2020-06-19 13:20 | Outpatient (CLI) | payer OTHER ==
[2020-06-19] MEDS ORDERED: GADOBUTROL 10 MMOL/10 ML VIAL ONE (15:13)
== END 2020-06-19 13:21 | disposition home or self-care (01) ==
LOC: DI 13:20
PROVIDERS: ATTEND Family Medicine
DX: R00.0 Tachycardia, unspecified (principal)
CPT/HCPCS: 93306

== ENCOUNTER 2020-06-29 16:50 | Outpatient (CLI) | payer OTHER ==
[2020-06-29] MEDS ORDERED: GADOBUTROL 10 MMOL/10 ML VIAL ONE (17:15)
== END 2020-06-29 16:51 | disposition home or self-care (01) ==
LOC: DI 16:50
PROVIDERS: ATTEND Family Medicine
DX: Z53.9 Procedure and treatment not carried out, unspecified reason (principal)

== ENCOUNTER 2020-10-02 18:43 | Outpatient (CLI) | payer OTHER ==
--- NOTE | 2020-10-03 15:40 | Ultrasound Report ---
PROCEDURE: Pelvic w/Transvaginal INDICATIONS: RLQ ABD PAIN, HX OF BENIGN NEOPLASM OF R OVARY TECHNIQUE: Real-time scanning was performed of the pelvic organs, with image documentation. Additional endovagi nal scanning was necessary due to incomplete visualization of the adnexal and endometrial structures by transabdominal scanning. COMPARISON: 04/05/2018 FINDINGS: No pathologic free abdominal or pelvic fluid. The uterus and left ovary are surgically absent. The right ovary measures 2.6 x 1.3 x 2.0 cm. Within the right ovary is a 1.0 x 0.8 x 1.1 cm anechoic simple cyst. IMPRESSION: Simple appearing cyst/dominant follicle measuring 1.1 cm in an otherwise normal-appearing right ovary . Surgical removal of the uterus and left ovary. Reviewed by: Harjeet Lang DO on 10/03/2020 2:39 PM [facility] Approved by: Harjeet Lang DO on 10/03/2020 2:39 PM [facility] Station ID: [id number]
== END 2020-10-02 18:44 | disposition home or self-care (01) ==
LOC: DI 18:43
PROVIDERS: ATTEND Nurse Practitioner Family
DX: R10.31 Right lower quadrant pain (principal); N83.201 Unspecified ovarian cyst, right side

== ENCOUNTER 2021-02-03 18:20 | Outpatient (CLI) | payer OTHER ==
--- NOTE | 2021-02-04 09:15 | XRAY Report ---
PROCEDURE: Lumbar Spine 2 View INDICATIONS: Lumbago with sciatica, right side; M54.41 TECHNIQUE: 2 views of the lumbar spine were acquired. COMPARISON: None. FINDINGS: Bones: 5 [id number] vertebrae are present. There is normal bony alignment. No vertebral body compression fractures. No suspicious bony lesions. Minimal left curvature of the lumbar spine is see n with a Mast angle of 5 degrees. Soft tissues: Overlying bowel gas pattern is normal. No suspicious soft tissue calcifications. IMPRESSION: 1. No acute abnormality of the lumbar spine. 2. Minimal leftward curvature of the lumbar spine. Reviewed by: Anderson Leiva on 02/04/2021 9:13 AM PDT Approved by: Anderson Leiva on 02/04/2021 9:13 AM PDT Station ID: [id number]
== END 2021-02-03 18:21 | disposition home or self-care (01) ==
LOC: DI 18:20
PROVIDERS: ATTEND Acupuncturist
DX: M54.41 Lumbago with sciatica, right side (principal)

== ENCOUNTER 2021-02-18 09:50 | Emergency (ER) | payer OTHER ==
--- NOTE | 2021-02-18 10:42 | ED Physician Documentation ---
PD HPI NVD - Stated complaint Stated Complaint: VOMITING BLOOD - Chief complaint Chief Complaint: Abd Pain - History obtained from History obtained from: Patient - History of Present Illness Timing - onset: How many days ago (3) Timing - duration: Days (3) Timing - details: Abrupt onset (onset of nausea and vomiting very soon after taking dose of new med, and again after second dose later in day. Has not taken further of those, but continues with nausea and vomiting, upper abd cramping pain since.), Still present Associated symptoms: Abdominal pain (epigastric area.). No: Fever Contributing factors: Other (new Rx med started Monday and onset N/V 1/2 hour later.). No: Sick contact, Bad food, Recent antibiotics Similar symptoms before: Has not had sx before Recently seen: Not recently seen Review of Systems Constitutional: denies: Fever, Chills Nose: denies: Rhinorrhea / runny nose, Congestion Throat: denies: Sore throat Respiratory: denies: Cough GI: reports: Abdominal Pain, Nausea, Vomiting. denies: Abdominal Swelling, Constipation, Diarrhea : denies: Dysuria, Frequency Neurologic: reports: Generalized weakness, Headache (since last night, but feels it is due to not being able to drink coffee as usual.). denies: Near syncope, Altered mental status PD PAST MEDICAL HISTORY - Past Medical History Respiratory: None Endocrine/Autoimmune: None TOP STOP ATTACHER: Ovarian cysts : Kidney stones Musculoskeletal: Chronic back pain, Other - Past Surgical History Past Surgical History: Yes General: Appendectomy /TOP STOP ATTACHER: Hysterectomy, Oophrectomy (left ovary; still has right), Other HEENT: Tonsil/Adenoidectomy - Present Medications Home Medications: Ambulatory Orders Medication Instructions Recorded Confirmed Gabapentin [Neurontin] 05/06/18 Naproxen [Naprosyn] 500 mg PO BID 20 Days #20 tablet 05/06/18 Famotidine [Pepcid] 20 mg PO ONCE #30 tablet 05/20/18 HYDROcod/ACETAM 5/325 [[place] 5/325] 1 tab PO Q6H PRN #15 tablet 05/20/18 Ondansetron Odt [Zofran] 4 mg TL Q6H PRN #15 tablet 05/20/18 Famotidine [Pepcid] 20 mg PO DAILY #20 tablet 02/18/21 Lidocaine Viscous 2% [Xylocaine 5 ml PO Q4H PRN #100 ml 02/18/21 Viscous 2%] Ondansetron Odt [Zofran] 4 mg TL Q6H PRN #15 tablet 02/18/21 Topiramate [Topamax] 02/18/21 - Allergies Allergies/Adverse Reactions: Allergies Allergy/AdvReac Type Severity Reaction Status Date / Time hydromorphone Allergy Hives Verified 02/18/21 10:02 Iodinated Contrast Media Allergy Hives Verified 02/18/21 10:02 [Iodinated Contrast Media - IV Dye] Penicillins Allergy Hives Verified 02/18/21 10:02 - Social History Does the pt smoke?: Yes Smoking Status: Current every day smoker Does the pt drink ETOH?: No Does the pt have substance abuse?: No - Immunizations Immunizations are current?: Yes - POLST Patient has POLST: No PD ED PE NORMAL - Vitals Vital signs reviewed: Yes - General General: Alert and oriented X 3, No acute distress, Well developed/nourished - HEENT HEENT: Pharynx benign. No: Moist mucous membranes - Neck Neck: Supple, no meningeal sign, No adenopathy - Cardiac Cardiac: No murmur. No: RRR (tachycardic but regular) - Respiratory Respiratory: Clear bilaterally - Abdomen Abdomen: Normal bowel sounds, Soft, Non distended, No organomegaly, Other (tender in epigastric area without percussion nor rebound) - Back Back: No CVA TTP - Derm Derm: Normal color, Warm and dry - Extremities Extremities: Normal ROM s pain - Neuro Neuro: Alert and oriented X 3, No motor deficit, Normal speech Results - Vitals Vitals: Vital Signs - 24 hr 02/18/21 02/18/21 02/18/21 09:55 11:38 13:43 Temperature 36.9 C 36.4 C L 36.0 C L Heart Rate 128 H 96 101 H Respiratory 16 12 18 Rate Blood Pressure 141/96 H 117/89 H 131/95 H O2 Saturation 98 96 100 Oxygen O2 Source Room air - Labs Labs: Laboratory Tests 02/18/21 02/18/21 02/18/21 10:47 10:47 12:26 WBC 7.1 RBC 4.53 Hgb 13.9 Hct 41.6 MCV 91.8 MCH 30.7 MCHC 33.4 RDW 11.7 L Plt Count 299 MPV 10.1 Neut # (Auto) 4.9 Lymph # (Auto) 1.6 [place] # (Auto) 0.4 Eos # (Auto) 0.1 Baso # (Auto) 0.0 Absolute Nucleated RBC 0.00 Nucleated RBC % 0.0 Sodium 139 Potassium 3.6 Chloride 107 Carbon Dioxide 22 Anion Gap 10.0 BUN 9 Creatinine 0.8 Estimated GFR (MDRD) 83 L Glucose 95 Calcium 9.7 Total Bilirubin 0.5 AST 17 ALT 17 Alkaline Phosphatase 60 Total Protein 8.0 Albumin 4.5 Globulin 3.5 Albumin/Globulin Ratio 1.3 Lipase 27 Urine Color YELLOW Urine Clarity CLEAR Urine pH 7.0 Ur Specific [place] 1.015 Urine Protein NEGATIVE Urine Glucose (UA) NEGATIVE Urine Ketones NEGATIVE Urine Occult Blood NEGATIVE Urine Nitrite NEGATIVE Urine Bilirubin NEGATIVE Urine Urobilinogen 0.2 (NORMAL) Ur Leukocyte Esterase TRACE H Urine RBC 0-5 Urine WBC 0-3 Ur Squamous Epith Cells MOD Squamous H Urine Bacteria Rare Ur Microscopic Review INDICATED Urine Culture Comments NOT INDICATED Urine HCG, Qual NEGATIVE PD MEDICAL DECISION MAKING - ED course Complexity details: re-evaluated patient (improved with meds and fluids here in ER. Taking fluids and crackers okay. ), considered differential (Seems started with side effect of new med. Has continued with gastritis symptoms. Does take pain meds daily but not large dose. Suppose could have now some element of symptoms from lack of regular meds. ), d/w patient Departure - Departure Disposition: 01 Home, Self Care Clinical Impression: Dehydration, Side effect of drug Nausea and vomiting Qualifiers: Vomiting type: unspecified Vomiting Intractability: intractable Qualified Code(s): R11.2 - Nausea with vomiting, unspecified Acute gastritis Qualifiers: Gastritis type: unspecified gastritis Gastritis bleeding: without bleeding Qualified Code(s): K29.00 - Acute gastritis without bleeding Condition: Stable Record reviewed to determine appropriate education?: Yes Instructions: ED Gastritis Follow-Up: Rich Kruger DO [Primary Care Provider] - Prescriptions: Famotidine [Pepcid] 20 mg PO DAILY #20 tablet Lidocaine Viscous 2% [Xylocaine Viscous 2%] 5 ml PO Q4H PRN #100 ml PRN Reason: Pain Ondansetron Odt [Zofran] 4 mg TL Q6H PRN #15 tablet PRN Reason: Nausea / Vomiting Comments: Frequent fluids and bland food today and tomorrow. Zofran as needed for nausea. Famotidine twice daily for several days then once daily for 2-3 weeks. Antacid such as Mylanta or Maalox for discomfort, and can add lidocaine to that to help with stomach pains. Recheck if not improved over the next couple of days. Return if worse. Discharge Date/Time: 02/18/21 13:53
[2021-02-18 10:58] LABS: BASOPHILS % (AUTO) 0.6 %; EOSINOPHILS # (AUTO) 0.1 10^3/uL (0.0-0.7); EOSINOPHILS % (AUTO) 1.8 %; HCT - HEMATOCRIT 41.6 % (37.0-47.0); HGB - HEMOGLOBIN 13.9 g/dL (12.0-16.0); LYMPHOCYTES # (AUTO) 1.6 10^3/uL (1.5-3.5); LYMPHOCYTES % (AUTO) 22.6 %; MEAN CORPUSCULAR HEMOGLOBIN 30.7 pg (27.0-31.0); MEAN CORPUSCULAR HGB CONC 33.4 g/dL (32.0-36.0); MEAN CORPUSCULAR VOLUME 91.8 fL (81.0-99.0); MEAN PLATELET VOLUME 10.1 fL (7.9-10.8); MONOCYTES # (AUTO) 0.4 10^3/uL (0.0-1.0); MONOCYTES % (AUTO) 5.6 %; NEUTROPHILS # (AUTO) 4.9 10^3/uL (1.5-6.6); NEUTROPHILS % (AUTO) 69.1 %; PLT - PLATELET COUNT 299 10^3/uL (130-450); RED BLOOD COUNT 4.53 10^6/uL (4.20-5.40); RED CELL DISTRIBUTION WIDTH 11.7 % (12.0-15.0); WHITE BLOOD COUNT 7.1 x10^3/uL (4.8-10.8)
[2021-02-18] MEDS ORDERED: SODIUM CHLORIDE 0.9% 1,000 ML IV STA ×2 (11:00)
[2021-02-18] MEDS ORDERED: ONDANSETRON 4 MG/2 ML VIAL IVP STA (11:00)
[2021-02-18] MEDS ORDERED: MORPHINE 2 MG/ML CARPUJECT IVP STA ×2 (11:00→12:14)
[2021-02-18] MEDS ORDERED: FAMOTIDINE 20 MG/2 ML VIAL IVP STA (11:00)
[2021-02-18 11:14] LABS: ALBUMIN 4.5 g/dL (3.2-5.5); ALBUMIN/GLOBULIN RATIO 1.3 (1.0-2.2); BILIRUBIN,TOTAL 0.5 mg/dL (0.2-1.0); CALCIUM 9.7 mg/dL (8.5-10.3); CREATININE 0.8 mg/dL (0.4-1.0); POTASSIUM 3.6 mmol/L (3.5-5.0)
[2021-02-18] MEDS ORDERED: MAG HYDROX/AL HYDROX/SIMETH 30 ML UDC PO STA (12:14)
[2021-02-18] MEDS ORDERED: DROPERIDOL 5 MG/2 ML VIAL IVP STA (12:14)
[2021-02-18 12:48] LABS: BILIRUBIN,URINE NEGATIVE (NEGATIVE); GLUCOSE, URINE (UA) NEGATIVE (NEGATIVE); KETONES,URINE (UA) NEGATIVE (NEGATIVE); LEUKOCYTE ESTERASE, URINE TRACE (NEGATIVE); NITRITE,URINE NEGATIVE (NEGATIVE); OCCULT BLOOD,URINE NEGATIVE (NEGATIVE); PROTEIN,URINE NEGATIVE (NEGATIVE); UROBILINOGEN,URINE 0.2 (NORMAL) E.U./dL (NORMAL)
[2021-02-18 12:49] LABS: CLARITY,URINE CLEAR (CLEAR)
[2021-02-18 12:51] LABS: HCG UR QUAL NEGATIVE
[2021-02-18 13:04] LABS: BACTERIA,URINE Rare /HPF (None Seen); RBC,URINE 0-5 /HPF (0-5); SQUAMOUS EPITHELIAL CELL,UR MOD Squamous (<= Few); WBC,URINE 0-3 /HPF (0-5)
[2021-02-18 13:44] VITALS: BP 131/95
== END 2021-02-18 13:53 | disposition home or self-care (01) ==
LOC: ED 09:50
DX: E86.0 Dehydration (principal); K29.00 Acute gastritis without bleeding; R11.2 Nausea with vomiting, unspecified; T50.905A Adverse effect of unspecified drugs, medicaments and biological substances, initial encounter; F17.200 Nicotine dependence, unspecified, uncomplicated
CPT/HCPCS: 36415; 80053; 81001; 81025; 83690; 85025; 96361; 96374; 96375; 99284; 99285; A9270; 81003; 87086

== ENCOUNTER 2021-02-19 11:20 | Emergency (ER) | payer OTHER ==
[2021-02-19] MEDS ORDERED: SODIUM CHLORIDE 0.9% 1,000 ML IV STA (11:40)
[2021-02-19] MEDS ORDERED: ONDANSETRON 4 MG/2 ML VIAL IVP STA (11:40)
[2021-02-19 12:00] LABS: BASOPHILS % (AUTO) 0.3 %; HCT - HEMATOCRIT 39.1 % (37.0-47.0); HGB - HEMOGLOBIN 13.4 g/dL (12.0-16.0); LYMPHOCYTES # (AUTO) 1.6 10^3/uL (1.5-3.5); LYMPHOCYTES % (AUTO) 14.8 %; MEAN CORPUSCULAR HEMOGLOBIN 31.3 pg (27.0-31.0); MEAN CORPUSCULAR HGB CONC 34.3 g/dL (32.0-36.0); MEAN CORPUSCULAR VOLUME 91.4 fL (81.0-99.0); MONOCYTES # (AUTO) 0.6 10^3/uL (0.0-1.0); MONOCYTES % (AUTO) 5.3 %; NEUTROPHILS # (AUTO) 8.5 10^3/uL (1.5-6.6); NEUTROPHILS % (AUTO) 79.4 %; PLT - PLATELET COUNT 327 10^3/uL (130-450); RED BLOOD COUNT 4.28 10^6/uL (4.20-5.40); RED CELL DISTRIBUTION WIDTH 11.9 % (12.0-15.0); WHITE BLOOD COUNT 10.6 x10^3/uL (4.8-10.8)
[2021-02-19 12:03] LABS: BILIRUBIN,URINE NEGATIVE (NEGATIVE); GLUCOSE, URINE (UA) NEGATIVE (NEGATIVE); KETONES,URINE (UA) NEGATIVE (NEGATIVE); LEUKOCYTE ESTERASE, URINE NEGATIVE (NEGATIVE); NITRITE,URINE NEGATIVE (NEGATIVE); OCCULT BLOOD,URINE NEGATIVE (NEGATIVE); PH,URINE 5.5 PH (5.0-7.5); PROTEIN,URINE NEGATIVE (NEGATIVE); UROBILINOGEN,URINE 0.2 (NORMAL) E.U./dL (NORMAL)
[2021-02-19 12:05] LABS: CLARITY,URINE CLEAR (CLEAR)
[2021-02-19 12:20] LABS: ALBUMIN 4.5 g/dL (3.2-5.5); ALBUMIN/GLOBULIN RATIO 1.4 (1.0-2.2); BILIRUBIN,TOTAL 0.7 mg/dL (0.2-1.0); CALCIUM 9.7 mg/dL (8.5-10.3); CREATININE 0.8 mg/dL (0.4-1.0); POTASSIUM 3.5 mmol/L (3.5-5.0); TOTAL PROTEIN 7.7 g/dL (6.7-8.2)
[2021-02-19] MEDS ORDERED: MORPHINE 10 MG/ML VIAL IVP STA (12:33)
--- NOTE | 2021-02-19 12:35 | ED Physician Documentation ---
PD HPI ABD PAIN - Stated complaint Stated Complaint: ABD PX - Chief complaint Chief Complaint: Abd Pain - History obtained from History obtained from: Patient - History of Present Illness Timing - onset: How many days ago (3) Timing - duration: Days (3) Timing - details: Gradual onset Pain level max: 10 Pain level now: 10 Quality: Cramping, Aching, Pain Location: Epigastric, Suprapubic Radiation: No: Chest, , Lower back, Left flank, Left shoulder, Right flank, Right shoulder, Upper back Improved by: No: Eating, Laying still, Vomiting, BM, Position, Meds Worsened by: No: Eating, Moving, Breathing, Position, Palpation Associated symptoms: Nausea, Vomiting. No: Fever, Hematemesis, Diarrhea, Constipation, Melena, Hematochezia, Dysuria, Hematuria, Vaginal dc - Additional information Additional information: Patient is a 30-year-old female who presents to the emergency department with abdominal pain, vomiting today. She states that she has had vomiting for the past 3 days, unable to keep her hydrocodone down. She states that she has had multiple abdominal surgeries in the past including left ovary removal and uterus removal. Still has her right ovary. She has also had her appendix removed. She states that all this started after taking Topamax for the first time. She was seen here yesterday for same, given IV fluids, pain medication and antiemetics, felt better, but today the pain has returned and worsened. She states she has epigastric and suprapubic pain. Nothing makes it better or w orse. Review of Systems Ten Systems: 10 systems reviewed and negative Constitutional: denies: Fever, Chills Respiratory: denies: Cough Skin: denies: Rash Musculoskeletal: denies: Neck pain, Back pain Neurologic: denies: Headache PD PAST MEDICAL HISTORY - Past Medical History Respiratory: None Endocrine/Autoimmune: None SCABBLER: Ovarian cysts : Kidney stones Musculoskeletal: Chronic back pain, Other - Past Surgical History Past Surgical History: Yes General: Appendectomy /SCABBLER: Hysterectomy, Oophrectomy, Other HEENT: Tonsil/Adenoidectomy - Present Medications Home Medications: Ambulatory Orders Medication Instructions Recorded Confirmed HYDROcod/ACETAM 5/325 [[place] 5/325] 1 tab PO Q6H PRN #15 tablet 05/20/18 02/19/21 Famotidine [Pepcid] 20 mg PO DAILY #20 tablet 02/18/21 02/19/21 Ondansetron Odt [Zofran] 4 mg TL Q6H PRN #15 tablet 02/18/21 02/19/21 Dicyclomine [Bentyl] 10 mg PO QID PRN #30 02/19/21 Estrogens, Conjugated [Premarin] 0.6 mg PO DAILY 02/19/21 02/19/21 Ondansetron Odt [Zofran] 4 mg TL Q6H PRN #10 tablet 02/19/21 Promethazine [Phenergan] 25 mg PO Q6H PRN #10 tab 02/19/21 - Allergies Allergies/Adverse Reactions: Allergies Allergy/AdvReac Type Severity Reaction Status Date / Time hydromorphone Allergy Hives Verified 02/19/21 12:00 Iodinated Contrast Media Allergy Hives Verified 02/19/21 12:00 [Iodinated Contrast Media - IV Dye] Penicillins Allergy Hives Verified 02/19/21 12:00 topiramate [From Topamax] AdvReac Nausea Verified 02/19/21 12:00 - Social History Does the pt smoke?: No Smoking Status: Former smoker Does the pt drink ETOH?: No Does the pt have substance abuse?: No - Immunizations Immunizations are current?: Yes - POLST Patient has POLST: No PD ED PE NORMAL - Vitals Vital signs reviewed: Yes - General General: Alert and oriented X 3, No acute distress - HEENT HEENT: Moist mucous membranes - Neck Neck: Supple, no meningeal sign - Cardiac Cardiac: RRR - Respiratory Respiratory: No respiratory distress, Clear bilaterally - Abdomen Abdomen: Soft, Other (Tender palpation epigastric and suprapubic. No peritoneal signs.) - Back Back: No CVA TTP, No spinal TTP - Derm Derm: Warm and dry - Extremities Extremities: No edema, No calf tenderness / cord - Neuro Neuro: Alert and oriented X 3 - Psych Psych: Normal mood, Normal affect Results - Vitals Vitals: Vital Signs - 24 hr 02/19/21 02/19/21 02/19/21 11:33 13:00 13:36 Temperature 36.4 C L 36.9 C Heart Rate 130 H 118 H 119 H Respiratory 18 16 12 Rate Blood Pressure 153/103 H 129/88 H 137/84 H O2 Saturation 97 100 95 Oxygen O2 Source Room air - Labs Labs: Laboratory Tests 02/19/21 02/19/21 02/19/21 11:53 11:53 11:53 WBC 10.6 RBC 4.28 Hgb 13.4 Hct 39.1 MCV 91.4 MCH 31.3 H MCHC 34.3 RDW 11.9 L Plt Count 327 MPV 10.0 Neut # (Auto) 8.5 H Lymph # (Auto) 1.6 [place] # (Auto) 0.6 Eos # (Auto) 0.0 Baso # (Auto) 0.0 Absolute Nucleated RBC 0.00 Nucleated RBC % 0.0 Sodium 140 Potassium 3.5 Chloride 106 Carbon Dioxide 21 Anion Gap 13.0 BUN 6 Creatinine 0.8 Estimated GFR (MDRD) 83 L Glucose 117 H Calcium 9.7 Total Bilirubin 0.7 AST 23 ALT 22 Alkaline Phosphatase 62 Total Protein 7.7 Albumin 4.5 Globulin 3.2 Albumin/Globulin Ratio 1.4 Lipase 25 Urine Color YELLOW Urine Clarity CLEAR Urine pH 5.5 Ur Specific [place] 1.010 Urine Protein NEGATIVE Urine Glucose (UA) NEGATIVE Urine Ketones NEGATIVE Urine Occult Blood NEGATIVE Urine Nitrite NEGATIVE Urine Bilirubin NEGATIVE Urine Urobilinogen 0.2 (NORMAL) Ur Leukocyte Esterase NEGATIVE Ur Microscopic Review NOT INDICATED Urine Culture Comments NOT INDICATED - Rads (name of study) CT abdomen pelvis Radiology: Prelim report reviewed, EMP read contemporaneously, See rad report (No acute abnormality) PD MEDICAL DECISION MAKING - ED course Complexity details: reviewed results, re-evaluated patient, considered differential, d/w patient ED course: Given IV fluids, morphine, Zofran here. Feels much better. Possible narcotic withdrawal? No acute findings on CT scan. Patient is well-appearing, nontoxic. Afebrile. We will place her on antiemetics for home and continue supportive care. Patient counseled regarding signs and symptoms for which I believe and urgent re-evaluation would be necessary. Patient with good understanding of and agreement to plan and is comfortable going home at this time This document was made in part using voice recognition software. While efforts are made to proofread this document, sound alike and grammatical errors may occur. Departure - Departure Disposition: 01 Home, Self Care Clinical Impression: Acute abdominal pain Nausea and vomiting Qualifiers: Vomiting type: unspecified Vomiting Intractability: non-intractable Qualified Code(s): R11.2 - Nausea with vomiting, unspecified Condition: Good Instructions: ED Abdominal Pain Unkn Cause, ED Nausea Vomiting Follow-Up: Rich Kruger DO [Primary Care Provider] - Within 3 Days Prescriptions: Dicyclomine [Bentyl] 10 mg PO QID PRN #30 PRN Reason: Abdominal Pain Promethazine [Phenergan] 25 mg PO Q6H PRN #10 tab PRN Reason: Nausea / Vomiting Ondansetron Odt [Zofran] 4 mg TL Q6H PRN #10 tablet PRN Reason: Nausea / Vomiting Comments: Follow-up with your doctor for further care. Will prescribe you antiemetics for home. Return if you worsen. Drink plenty of fluids. Your CT does not show any acute abnormalities today. Your blood work does not show any acute abnormalities either. Discharge Date/Time: 02/19/21 13:40
--- NOTE | 2021-02-19 13:10 | CT Report ---
PROCEDURE: Abdomen/Pelvis WO INDICATIONS: diffuse abd pain, vomiting, multiple surgeries TECHNIQUE: Noncontrast 5 mm thick sections acquired from the diaphragms to the symphysis. 5 mm coronal and sagi ttal reformats were then performed. For radiation dose reduction, the following was used: automated exposure control, adjustment of mA and/or kV according to patient size. COMPARISON: 06/02/2020, 05/06/2018. FINDINGS: Image quality: Excellent. ABDOMEN: Lung bases: Mild bibasilar dependent atelectasis is seen. Heart size is normal. Solid organs: Liver and spleen are normal in size. Gallbladder is within normal limits Pancreas is normal in contours. No adrenal nodules. Kidneys are normal in size, without hydronephrosis or neph rolithiasis. Peritoneum and bowel: Unenhanced bowel loops demonstrate normal wall thickness and caliber. No free fluid or air. Appendix is surgically absent. A few scattered colonic diverticuli are seen, no CT ev idence of acute diverticulitis. No abscess collection. Nodes and vessels: No retroperitoneal or mesenteric adenopathy by size criteria. Aorta and inferior vena cava are normal in caliber. Miscellaneous: No ventral hernias. PELVIS: Genitourinary: Bladder wall thickness is normal. Miscellaneous: No inguinal hernias or adenopathy. Bones: No suspicious bony lesions. No vertebral body compression fractures. IMPRESSION: 1. No acute inflammatory process within abdomen or pelvis. No bowel obstruction. No free fluid or liza e air. Appendix is surgically absent. Very mild colonic diverticulosis without CT evidence of acute d iverticulitis. 2. No renal stone or hydronephrosis. 3. Mild bibasilar dependent atelectasis. Reviewed by: Rubén Flanagan MD on 02/19/2021 1:08 PM PDT Approved by: Rubén Flanagan MD on 02/19/2021 1:08 PM PDT Station ID: [id number]
[2021-02-19 13:37] VITALS: BP 137/84
== END 2021-02-19 13:40 | disposition home or self-care (01) ==
LOC: ED 11:20
DX: R10.13 Epigastric pain (principal); R11.2 Nausea with vomiting, unspecified; Z87.891 Personal history of nicotine dependence
CPT/HCPCS: 36415; 80053; 81001; 81003; 83690; 85025; 87086; 96374; 96375; 99284

== ENCOUNTER 2021-05-14 11:41 | Outpatient (CLI) | payer OTHER ==
--- NOTE | 2021-05-14 13:20 | XRAY Report ---
PROCEDURE: Chest 2 View X-Ray INDICATIONS: COUGH TECHNIQUE: 2 views of the chest. COMPARISON: None. FINDINGS: Surgical changes and devices: None. Lungs and pleura: No pleural effusions or pneumothorax. Lungs are clear. Mediastinum: Mediastinal contours are normal. Heart size is normal. Bones and chest wall: No suspicious bony abnormalities. Soft tissues appear unremarkable. IMPRESSION: No acute cardiopulmonary abnormality. Reviewed by: Oh Brown MD on 05/14/2021 1:19 PM PDT Approved by: Oh Brown MD on 05/14/2021 1:19 PM PDT Station ID: [id number]
== END 2021-05-14 23:59 | disposition home or self-care (01) ==
LOC: DI.N 11:41
PROVIDERS: ATTEND Family Medicine
DX: R05 Cough (principal); Z20.822 Contact with and (suspected) exposure to COVID-19

== ENCOUNTER 2021-09-05 19:17 | Outpatient (CLI) | payer BC ==
--- NOTE | 2021-09-05 20:13 | XRAY Report ---
PROCEDURE: Hips 2V BILAT INDICATIONS: RIGHT SIDE HIP TECHNIQUE: An AP view of the pelvis and bilateral frog-leg lateral views of the hips are provided.. COMPARISON: None FINDINGS: Bones: Mild bilateral hip degenerative change. No fractures or dislocations. No suspicious bony les ions. The visualized pelvic ring appears intact. Soft tissues: No suspicious soft tissue calcifications or masses. IMPRESSION: Mild bilateral hip degenerative change. No evidence acute bony abnormality of the pelvis and bilatera l hips. If clinical suspicion and/or symptoms persist, further assessment with repeat plain films or advanced imaging (e.g., CT, MRI, or bone scan) may be helpful for further assessment. Reviewed by: Rigo Cedeño MD on 09/05/2021 8:11 PM PST Approved by: Rigo Cedeño MD on 09/05/2021 8:11 PM PST Station ID: [id number]
--- NOTE | 2021-09-05 20:13 | XRAY Report ---
PROCEDURE: SI Joints INDICATIONS: RIGHT SIDE BACK LEG PX TECHNIQUE: 3 views of the sacroiliac joints were acquired. COMPARISON: Pelvis and hips using the same date FINDINGS: Bones: No bony erosions or ankylosis. No suspicious bony lesions. No fractures. Soft tissues: Overlying bowel gas pattern is normal. No suspicious soft tissue densities. IMPRESSION: Unremarkable bilateral SI joint films. Reviewed by: Rigo Cedeño MD on 09/05/2021 8:12 PM PST Approved by: Rigo Cedeño MD on 09/05/2021 8:12 PM PST Station ID: [id number]
== END 2021-09-05 19:18 | disposition home or self-care (01) ==
LOC: DI 19:17
PROVIDERS: ATTEND Acupuncturist
DX: M16.0 Bilateral primary osteoarthritis of hip (principal)

== ENCOUNTER 2022-05-07 13:45 | Outpatient (CLI) | payer BC ==
[2022-05-07 22:05] LABS: BACTERIAL VAGINOSIS DNA POSITIVE (NEGATIVE); CANDIDA GLABRATA DNA NEGATIVE (NEGATIVE); CANDIDA GROUP DNA POSITIVE (NEGATIVE); CANDIDA KRUSEI DNA NEGATIVE (NEGATIVE); TRICHOMONAS VAGINALIS DNA NEGATIVE (NEGATIVE)
== END 2022-05-07 23:59 | disposition home or self-care (01) ==
LOC: LAB.N 13:45
PROVIDERS: ATTEND Physician Assistant
DX: R30.0 Dysuria (principal)
CPT/HCPCS: 81514

== ENCOUNTER 2022-06-27 06:07 | Emergency (ER) | payer BC ==
[2022-06-27] MEDS ORDERED: ACETAMINOPHEN 325 MG TABLET PO STA (06:27)
[2022-06-27 06:47] VITALS: BP 129/98
--- NOTE | 2022-06-27 07:07 | ED Physician Documentation ---
PD HPI URI - Stated complaint Stated Complaint: C+ TIGHT CHEST/THROAT PX - Chief complaint Chief Complaint: Resp - History obtained from History obtained from: Patient - History of Present Illness Timing - onset: Yesterday Timing duration: Days (2) Timing details: Abrupt onset, Still present Associated symptoms: Fever, Nasal congestion, Sore throat, Dry cough, Chest pain (with coughing), Other (COVID test at home was positive.). No: NVD Contributing factors: No: Sick contact, Immunocompromised Similar symptoms before: Has not had sx before Recently seen: Not recently seen Review of Systems Constitutional: reports: Fever, Chills, Myalgias Nose: reports: Congestion Throat: reports: Sore throat Cardiac: reports: Chest pain / pressure, Palpitations (resting heart rate tachycardic commonly.). denies: Pedal edema, Calf pain Respiratory: reports: Cough GI: denies: Abdominal Pain, Nausea, Vomiting, Diarrhea Skin: denies: Rash, Lesions Neurologic: reports: Generalized weakness, Headache. denies: Focal weakness, Numbness, Near syncope, Altered mental status PD PAST MEDICAL HISTORY - Past Medical History Past Medical History: Yes Respiratory: None Endocrine/Autoimmune: None DEHAIRER: Endometriosis, Ovarian cysts : Kidney stones Musculoskeletal: Chronic back pain (due to herniated disc. On pain contract for pain med tid. ), Other - Past Surgical History Past Surgical History: Yes General: Appendectomy /DEHAIRER: Hysterectomy, Oophrectomy, Other HEENT: Tonsil/Adenoidectomy - Present Medications Home Medications: Ambulatory Orders Medication Instructions Recorded Confirmed Estrogens, Conjugated [Premarin] 0.6 mg PO DAILY 02/19/21 06/27/22 Albuterol Sulf [Ventolin Hfa 2 - 3 puffs INH QID 10 Days #1 each 06/27/22 Inhaler] Benzonatate [Tessalon] 100 mg PO TID PRN #20 cap 06/27/22 Hydrocodone/Acetaminophen 1 tab PO Q6HR PRN 06/27/22 06/27/22 [Hydrocodone-Acetamin 10-325 mg] dexAMETHasone [Decadron] 4 mg PO DAILY #5 tablet 06/27/22 - Allergies Allergies/Adverse Reactions: Allergies Allergy/AdvReac Type Severity Reaction Status Date / Time amoxicillin Allergy Hives Verified 06/27/22 06:30 hydromorphone Allergy Hives Verified 06/27/22 06:22 Iodinated Contrast Media Allergy Hives Verified 06/27/22 06:22 [Iodinated Contrast Media - IV Dye] Penicillins Allergy Hives Verified 06/27/22 06:22 topiramate [From Topamax] AdvReac Nausea Verified 06/27/22 06:22 - Social History Does the pt smoke?: No Smoking Status: Never smoker Does the pt drink ETOH?: No Does the pt have substance abuse?: No - Immunizations Immunizations are current?: Yes - POLST Patient has POLST: No PD ED PE NORMAL - Vitals Vital signs reviewed: Yes - General General: Alert and oriented X 3, No acute distress, Well developed/nourished - HEENT HEENT: Ears normal, Pharynx benign - Neck Neck: Supple, no meningeal sign, No adenopathy - Cardiac Cardiac: No murmur. No: RRR (regular but tachycardic) - Abdomen Abdomen: Soft, Non tender - Derm Derm: Normal color, Warm and dry - Extremities Extremities: No edema, No calf tenderness / cord - Neuro Neuro: Alert and oriented X 3, No motor deficit, Normal speech Results - Vitals Vitals: Vital Signs - 24 hr 06/27/22 06/27/22 06/27/22 06:10 06:44 07:55 Temperature 38.0 C H Heart Rate 124 H 100 79 Respiratory 18 16 17 Rate Blood Pressure 150/98 H 129/98 H O2 Saturation 97 100 Oxygen O2 Source Room air - Rads (name of study) chest xray Radiology: Prelim report reviewed (no cardiopulmonary findings.), See rad report PD MEDICAL DECISION MAKING - ED course Complexity details: reviewed results, considered differential, d/w patient Departure - Departure Disposition: 01 Home, Self Care Clinical Impression: Dyspnea due to COVID-19, Pleuritic chest pain Condition: Stable Record reviewed to determine appropriate education?: Yes Follow-Up: Katie Jackson PA-C [Primary Care Provider] - Prescriptions: dexAMETHasone [Decadron] 4 mg PO DAILY #5 tablet Benzonatate [Tessalon] 100 mg PO TID PRN #20 cap PRN Reason: Cough Albuterol Sulf [Ventolin Hfa Inhaler] 2 - 3 puffs INH QID 10 Days #1 each Comments: Your chest xray is clear wthout signs of pneumonia, pneumothorax (collapsed lung) nor fluid in the lungs. Use the albuterol inhaler 2 to 3 puffs 4 times daily for the next week to 10 days to help with breathing and airflow. Decadron steroid anti-inflammatory to help with bronchial inflammation daily for 5 more days. You did receive a dose here today. Continue with your usual medications. You could add extra Tylenol or ibuprofen/naproxen every 6-8 hours with food if needed over the next couple of days to help with pain. Paxlovid antiviral combination medications twice daily for 5 days as directed on the kit. I sent your prescriptions to [facility] pharmacy in [place]. Stay well-hydrated. I would anticipate improvement over the next several days and hopefully more resolved by 4 to 5 days. Discharge Date/Time: 06/27/22 08:12
[2022-06-27] MEDS ORDERED: NIRMATRELVIR/RITONAVIR PREPACK PO STA (07:23)
[2022-06-27] MEDS ORDERED: CHERRY SYRUP 10 ML UDC PO ONE (07:23)
[2022-06-27] MEDS ORDERED: BENZONATATE 100 MG CAPSULE PO STA (07:23)
[2022-06-27] MEDS ORDERED: ALBUTEROL 1 PUFF INH STA (07:23)
[2022-06-27] MEDS ORDERED: DEXAMETHASONE 10 MG/ML VIAL PO STA (07:23)
[2022-06-27] MEDS ORDERED: HYDROcod/ACETAM 5/325 MG TABLET PO STA (08:01)
--- NOTE | 2022-06-27 08:30 | XRAY Report ---
PROCEDURE: Chest 1 View X-Ray INDICATIONS: chest pain/covid TECHNIQUE: One view of the chest was acquired. COMPARISON: Chest x-ray 05/14/2021 FINDINGS: Surgical changes and devices: None. Lungs and pleura: No pleural effusions or pneumothorax. Lungs are clear. Mediastinum: Mediastinal contours appear normal. Heart size is normal. Bones and chest wall: No suspicious bony lesions. Overlying soft tissues appear unremarkable. IMPRESSION: No acute pulmonary process. The above findings are concordant with preliminary report. Reviewed by: Mirian Vivas MD on 06/27/2022 8:29 AM PDT Approved by: Mirian Vivsa MD on 06/27/2022 8:29 AM PDT Station ID: [id number]
== END 2022-06-27 08:12 | disposition home or self-care (01) ==
LOC: ED 06:07
DX: U07.1 COVID-19 (principal); R06.00 Dyspnea, unspecified; B97.29 Other coronavirus as the cause of diseases classified elsewhere; R07.81 Pleurodynia
CPT/HCPCS: 71045; 94640; 94664; 99283; A9270; J3490

== ENCOUNTER 2023-11-22 18:19 | Outpatient (CLI) | payer BC ==
[2023-11-22 20:22] LABS: BASOPHILS % (AUTO) 0.3 %; EOSINOPHILS # (AUTO) 0.1 10^3/uL (0.0-0.7); HCT - HEMATOCRIT 36.7 % (37.0-47.0); HGB - HEMOGLOBIN 11.6 g/dL (12.0-16.0); LYMPHOCYTES # (AUTO) 2.9 10^3/uL (1.5-3.5); LYMPHOCYTES % (AUTO) 47.1 %; MEAN CORPUSCULAR HEMOGLOBIN 30.1 pg (27.0-31.0); MEAN CORPUSCULAR HGB CONC 31.6 g/dL (32.0-36.0); MEAN CORPUSCULAR VOLUME 95.3 fL (81.0-99.0); MEAN PLATELET VOLUME 10.8 fL (7.9-10.8); MONOCYTES # (AUTO) 0.5 10^3/uL (0.0-1.0); MONOCYTES % (AUTO) 7.9 %; NEUTROPHILS # (AUTO) 2.7 10^3/uL (1.5-6.6); NEUTROPHILS % (AUTO) 43.7 %; PLT - PLATELET COUNT 260 10^3/uL (130-450); RED BLOOD COUNT 3.85 10^6/uL (4.20-5.40); RED CELL DISTRIBUTION WIDTH 12.4 % (12.0-15.0); WHITE BLOOD COUNT 6.2 x10^3/uL (4.8-10.8)
[2023-11-22 20:42] LABS: ALBUMIN 4.4 g/dL (3.2-5.5); ALBUMIN/GLOBULIN RATIO 1.9 (1.0-2.2); ALKALINE PHOSPHATASE 56 IU/L (42-121); ALT ALANINE AMINOTRANSFERASE 10 IU/L (10-60); AST ASPARTATE AMINOTRANSFERASE 14 IU/L (10-42); BILIRUBIN,TOTAL 0.3 mg/dL (0.2-1.0); BUN - BLOOD UREA NITROGEN 12 mg/dL (6-20); CALCIUM 9.4 mg/dL (8.5-10.3); CARBON DIOXIDE - CO2 29 mmol/L (21-32); CHLORIDE 103 mmol/L (101-111); CHOL/HDL RATIO 2.9 (<4.4); CHOLESTEROL 173 mg/dL; CREATININE 0.8 mg/dL (0.6-1.3); GFR - MDRD 82 (>89); GLUCOSE 89 mg/dL (74-104); HDL CHOLESTEROL 59 mg/dL; LDL CHOLESTEROL,CALCULATED 86 mg/dL; LDL/HDL RATIO 1.5 (<4.4); POTASSIUM 3.6 mmol/L (3.5-4.5); SODIUM 138 mmol/L (135-145); TOTAL PROTEIN 6.7 g/dL (6.4-8.9); TRIGLYCERIDES 142 mg/dL (48-352); VLDL CHOLESTEROL 28 mg/dL
[2023-11-22 20:52] LABS: THYROID STIMULATING HORMONE 2.89 uIU/mL (0.34-5.60)
== END 2023-11-22 18:20 | disposition home or self-care (01) ==
LOC: LAB.N 18:19
PROVIDERS: ATTEND Physician Assistant
DX: N95.1 Menopausal and female climacteric states (principal); Z79.890 Hormone replacement therapy
CPT/HCPCS: 36415; 80053; 80061; 83721; 84443; 85025